=== PATIENT | female | born 1970 | race Caucasian/White ===

== ENCOUNTER 2022-03-18 19:16 | Emergency (ER) | payer OTHER ==
[2022-03-18] MEDS ORDERED: Acetaminophen/Butalbital/Caffeine 325-50-40 MG Tab PO STA (20:07)
== END 2022-03-18 20:27 | disposition home or self-care (01) ==
LOC: JD.ED 19:16
DX: R51.9 Headache, unspecified (principal); R53.83 Other fatigue; I10 Essential (primary) hypertension; E78.00 Pure hypercholesterolemia, unspecified; Z86.16 Personal history of COVID-19
CPT/HCPCS: 99283; A9270